=== PATIENT | male | born 1960 | race Caucasian/White ===

== ENCOUNTER 2017-09-05 07:38 | Emergency (ER) | payer SELFPAY ==
[2017-09-05 08:01] LABS: #Eosinphils 0.1 thou/uL (0.0-0.7); #Lymphocytes 1.2 thou/uL (1.20-3.40); #Monocytes 0.7 thou/uL (0.11-0.59); #Neutrophils 6.8 thou/uL (1.40-6.50); %Basophils 0.4 % (0.0-1.0); %Eosinophils 1.5 % (0.0-10.0); %Lymphocytes 13.9 % (21.0-51.0); %Monocytes 7.4 % (0.0-10.0); Hematocrit 42.6 % (42.0-52.0); Red Blood Cell (RBC) Count 4.44 mill/uL (4.70-6.10); White Blood Cell (WBC) Count 8.8 thou/uL (4.8-10.8)
[2017-09-05 08:22] LABS: ALT (SGPT) 16 U/L (8-55); AST (SGOT) 20 U/L (5-34); Alkaline Phosphatase 65 U/L (40-150); Anion Gap 13 mmol/L (10-20); BUN (Urea Nitrogen) 10 mg/dL (8.4-25.7); Bilirubin, Total 0.3 mg/dL (0.2-1.2); Calc. Creatinine Clearance 0 mL/min (70-130); Calcium 8.8 mg/dL (7.8-10.44); Carbon Dioxide 25 mmol/L (22-29); Chloride 107 mmol/L (98-107); Estimated GFR-MDRD Greater than 90; Globulin 2.9 g/dL (2.4-3.5); Lipase 37 U/L (8-78); Protein, Total 6.8 g/dL (6.0-8.3)
[2017-09-05] MEDS ORDERED: Ondansetron HCl/PF 4 MG/2 ML Vial ONE (08:42)
[2017-09-05] MEDS ORDERED: Ketorolac Tromethamine 30 MG/ML VIAL ONE (08:42)
[2017-09-05] MEDS ORDERED: Morphine 4 MG/ML VIAL ONE (08:42)
[2017-09-05 09:30] LABS: Bilirubin Negative (Negative); Blood, Urine Negative (Negative); Glucose, Urine (Dipstick) Negative (Negative); Ketone, Urine Negative (Negative); Nitrite Negative (Negative); Protein, Urine (Dipstick) Negative (Neg-Trace); Urobilinogen 0.2 mg/dL (0.2-1.0)
--- NOTE | 2017-09-05 11:16 | CT ---
NONCONTRAST ENHANCED CT IMAGES OF ABDOMEN AND PELVIS: Date: 09/05/17 HISTORY: 57-year-old presents with history of abdominal pain, right lower quadrant. FINDINGS: Noncontrast enhanced CT images of abdomen and pelvis demonstrate the lung bases to be unremarkable. N o evidence of free intraperitoneal air is seen. The liver and spleen are unremarkable. The gallbladder is distended. The pancreas is unremarkable. Ad renal glands are unremarkable. The right kidney is unremarkable. The left kidney contains approximate ly 1.0 mm nonobstructing renal calculus in mid pole of the left kidney. No evidence of hydroureterone phrosis is seen. The appendix is not visualized. A large amount of stool is seen in the colon. IMPRESSION: Nonobstructing tiny mid pole left renal calculus. Otherwise unremarkable CT images of abdomen and pel vis. POS: [id number]
== END 2017-09-05 10:00 | disposition home or self-care (01) ==
LOC: ERS 07:38
DX: R10.31 Right lower quadrant pain (principal)
CPT/HCPCS: 36415; 74176; 80053; 81003; 82150; 83690; 85025; 93005; 96361; 96374; 96375; J1885; J2270; J2405